=== PATIENT | male | born 1980 | race Caucasian/White ===

== ENCOUNTER → 2023-09-17 | Outpatient (REF) | payer BC, SELFPAY | LOC: DHSLP | PROVIDERS: FAMILY PHYSICIAN Family Medicine | DX: G47.33 Obstructive sleep apnea (adult) (pediatric) (principal); R06.83 Snoring | CPT/HCPCS: 95800 ==

== ENCOUNTER → 2023-10-18 07:32 | Outpatient (REF) | payer BC, SELFPAY | LOC: DHCBS HW 07:32 | PROVIDERS: ATTENDING PHYSICIAN Internal Medicine Cardiovascular Disease; FAMILY PHYSICIAN Family Medicine | DX: R42 Dizziness and giddiness (principal) | CPT/HCPCS: 93306 ==

== ENCOUNTER → 2023-11-02 07:26 | Outpatient (REF) | payer BC, SELFPAY | LOC: RCS 07:26 | PROVIDERS: ATTENDING PHYSICIAN Internal Medicine Cardiovascular Disease; FAMILY PHYSICIAN Family Medicine | DX: R42 Dizziness and giddiness (principal) | CPT/HCPCS: 93017 ==

== ENCOUNTER → 2025-05-15 09:16 | Outpatient (REF) | payer BC, SELFPAY | LOC: REG 09:16 | PROVIDERS: ATTENDING PHYSICIAN Family Medicine | DX: M54.50 Low back pain, unspecified (principal); M54.6 Pain in thoracic spine; R63.4 Abnormal weight loss; M41.9 Scoliosis, unspecified | CPT/HCPCS: 71046; 72072; 72110 ==